=== PATIENT | female | born 1970 | race Caucasian/White ===

== ENCOUNTER 2020-01-25 08:08 | Day surgery (SDC) | payer BC ==
--- NOTE | 2020-01-24 07:09 | EKG ---
Test Date: 2020-01-22 Test Time: 11:55:43 Process Control Technician: PAULINA MEASUREMENT RESULTS: Intervals: Rate: 67 NE: 174 QRSD: 82 QT: 436 QTc: 460 [place]: P: 82 NE: 174 QRS: 88 T: 61 INTERPRETIVE STATEMENTS: Normal sinus rhythm Normal ECG No previous ECG available for comparison Electronically Signed On 01-24-20 07:04:20 CDT by Jama Murray
--- OUTSIDE RECORDS SUMMARY | 2020-01-25 08:10 | XMS REPORT | Continuity of Care Document ---
:1970 Author Organization [employer] Care Team Providers Name Role Phone [employer] Unavailable Un available Problems Problem Status Onset Classification Date Comments Sourc e Date Reported Malignant tumor Resolved 02/04/20 Problem 10/12/2018 MH of thyroid gland 17 Med ical (disorder) Group,Mis brian Neuro R10.2 - PELVIC Active 11/10/19 MH OP ID AND PERINEAL PAIN 17 [place] Menopausal Active 03/22/20 Problem 10/12/2018 Data MH syndrome 13 migrated Medical (disorder) from [facility] Group,Mis [facility]ric[facility] brian on 09/07/14. Neuro Malaise and Active 02/28/20 Problem 10/12/2018 Data MH fatigue (finding) 13 migrated Me dical from [facility] Group,Mis Centricity brian on 09/07/14. 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 Neuro Abdominal Active 08/16/19 Problem 10/12/2018 Data MH bloating 13 migrated Medical (finding) from [facility] Group,Mis Centricity brian on 09/07/14. Neuro Internal Active 08/12/19 Problem 10/12/2018 Data MH hemorrhoids 13 migrated Medical (disorder) from [facility] Group,Mis Centricity brian on 09/07/14. Neuro Melanosis coli Active 08/12/19 Problem 10/12/2018 Data MH (disorder) 13 migrated Medical from [facility] Group,Mis Centricity brian on 09/07/14. Neuro Allergic rhinitis Active 07/27/19 Problem 10/12/2018 Data M H (disorder) 13 migrated Medical from [facility] Group,Mis Centricity brian on 09/07/14. Neuro Constipation Active 07/25/19 Problem 10/12/2018 Data MH (disorder) 13 migrated Medical from [facility] Group,Mis Centricity brian on 09/07/14. Neuro History of polyp Active Problem 10/12/2018 MH of colon Medical (situation) Group,Mi s brian Neuro Hypothyroidism Active Problem 10/12/2018 Data (disorder) migrated Medical from Group,[facility] Toxic[facility] Cent[facility] brian on 09/07/14. Neuro Irritable colon Active Problem 10/12/2018 (disorder) Medical Group,Mis brian Neuro Medications Medication Details Route Status Patient Ordering Order Source Instructions Provider Date lubiprostone 8 microgram Active 0.008 MG Oral = 1 cap, PO, 017 Medic al Capsule BID, # 60 Group [Amitiza] tab, 11 Refill(s), Pharmacy: [facility]/pharmacy #[id number] omeprazole 20 20 mg = 1 Active MH mg oral delayed cap, PO, 017 Medical release capsule Daily, # 30 Grou p cap, 1 Refill(s), other Allergies, Adverse Reactions, Alerts Substance Category Reaction Severity Reaction Status Date Comments S ource type Reported aspirin<sup Assertion Drug Active Data Mischer >1</sup> allergy 2 migrated Neuro from [employer] on 08/08/14. Originally documented as [facility] ASPIRIN. hives Immunizations Immunization Date Given Site Status Last Comments Source Updated Hx influenza 03/07/2013 completed GE Result Med [facility]specifi [facility]sup[facility] Migrated from e r Neuro OBS ; Data migrated from [employer] on 05/13/2015. Results No Data Provided for This Section Pathology Reports No Data Provided for This Section Diagnostic Reports Report Value Date Source Pelvis w Transvag and STUDY: Pelvis w Transvag and Pelvis Dopple r US 11/11/2016 [facility] Pelvis Doppler US COMPARISON: None. HISTORY: R10.2 Pelvic and perineal pa in - R10.2 Pelvic and perineal pain. FINDINGS: Transvaginal and transabdomi nal ultrasound images of the pelvis were obtained. Uterus: Anteverted and gama ures 8 x 3 x 4 cm. No uterine fibroids are seen. 5 mm myometrial cyst is seen in the posterior uterine body. Endometrial cavity: Empty. Endometrial stripe: Measures 5.0 mm which is wit hin normal limits. Right adnexa: Ovary measures 1.6 x 1.4 x 2.0 cm. No cyst or mass. Normal vascularity is seen. Left adnexa: Ovary measures 1.5 x 1.4 x 1.5 cm. No cyst or mass. Normal vascularity is seen. Pelvic fluid: None. Cervix: Unremarkable. IMPRESSION: Unremarkable pelvic ultrasound. Consultation Notes No Data Provided for This Section Discharge Summaries No Data Provided for This Section History and Physicals No Data Provided for This Section Vital Signs Vital Sign Value Date Comments Source Height 154.94 cm 03/10/2017 Medical Gr[facility] p BMI Calculated 24.9 03/10/2017 Medical Gr oup Weight 59.773 03/10/2017 Medical Grou p Systolic (mm Hg) 131 03/10/2017 Medical Group Diastolic (mm Hg) 76 03/10/2017 Medical Group Encounters Location Location Encounter Encounter Reason Attending ADM NH Stat us Source Details Type Number For Provider Date Date Visit [facility] Outpt Diag [id number] Sasha 11/11 11/12 [facility] [place] [facility] [id number] [facility] 02/03 [facility] [place] Outpatient [id number] SCREENING 02/07 Acti ve [facility] [place] Outpatient [id number] K[facility] 03/10 [facility] Outpatient [id number] [place] 03/10 03/11 [facility] [place] /2016 Med ical ology Group [place] Outpatient [id number] KIRT 04/21 [facility] Ambulatory [id number] Kirt 04/21 04/21 Gastroenter Pre-Reg [place] /2017 [place] dical [facility]logy Group [facility] Phone [id number] 09/08 09/10 [facility] Neur o e [place] [facility] [id number] Hamid 10/10 Active [facility] [place] [facility] Ambulatory [id number] Hamid 10/10 10/10 [facility] Pre-Reg [facility] Neur o e [place] Procedures Procedure Code Date Perfomer Comments Source Colonoscopy [id number] 02/09/20 Medical 17 Group,Misch er Neuro Esophagogastroduodenoscopy [id number] 02/09/20 Medical 17 Group,[facility]isch er Neuro Thyroidectomy [id number] Medical Group,[facility] er Neuro TL - Tubal ligation [id number] [facility] dical Group,[facility] er Neuro Assessment and Plan No Data Provided for This Section Plan of Care No Data Provided for This Section Social History Social History Date Source Social History TypeResponse 03/10/2017 [facility] Substance Abuse Use: None. Alcohol Current Smoking Status Current every day smoker; Exposure to To bacco Smoke None; Cigarette Smoking Last 365 Days Yes; Reg Smoking Cessation Counseling Yes entered on: 03/10/17 Social History TypeResponse 03/10/2017 [facility] Substance Abuse Use: None. Alcohol Current Smoking Status Current every day smoker; Exposure to To bacco Smoke None; Cigarette Smoking Last 365 Days Yes; Reg Smoking Cessation Counseling Yes entered on: 03/10/17 No data available for this 11/12/2016 [facility] section Family History No Data Provided for This Section Advance Directives No Data Provided for This Section Functional Status No Data Provided for This Section
--- OUTSIDE RECORDS SUMMARY | 2020-01-25 08:10 | XMS REPORT | Clinical Summary ---
:1970 Author Organization [facility] Address [address] [place] [address] Care Team Providers Name Role Phone Jeanne Wendy Primary Care Provider Allergies Active Allergy Reactions Severity Noted Date Comments Aspirin Medications Not on file Active Problems Not on file Social History Tobacco Use Types Packs/Day Years Used Date Never Assessed Sex Assigned at Date Recorded Not on file Last Filed Vital Signs Not on file Plan of Treatment Not on file Results Not on fileafter 01/24/2019 Insurance Payer Benefit Plan / Subscriber ID Effective Dates Phone Addre ss Type Group BLUE BCBS PPO POS [id number] 2018-Presen [phone] [id number] PPO CROSS/BLUE EPO CHOICE t 2 [facility] [id number]
--- OUTSIDE RECORDS SUMMARY | 2020-01-25 08:10 | XMS REPORT | Clinical Summary ---
:1970 Author Organization [facility] Address [address] [place] [address] Care Team Providers Name Role Phone Wendy Angel MD Primary Care Provider Allergies No Known Active Allergies Medications Medication Sig Dispensed Refills Start Date End Date Status levothyroxine Take 112 mcg by 0 Active (SYNTHROID, LEVOXYL) mouth daily. 112 mcg tablet raloxifene (EVISTA) 60 Take 60 mg by 0 Active mg tablet mouth daily. diazePAM (VALIUM) 5 MG Take 5 mg by 0 Active tablet mouth every 6 (six) hours as needed for anxiety. lubiprostone (AMITIZA) Take 8 mcg by 0 Active 8 MCG capsule mouth 2 (two) times a day with meals. zolpidem (AMBIEN) 10 mg Take 10 mg by 0 Active tablet mouth nightly as needed for sleep. Active Problems Not on file Surgical History Surgery Date Site/Laterality Comments THYROIDECTOMY Medical History Medical History Date Comments Hypothyroid Cancer (HCC) Social History Tobacco Use Types Packs/Day Years Used Date Heavy Tobacco Smoker Smokeless Tobacco: Never Used Alcohol Use Drinks/Week oz/Week Comments Yes sometimes Sex Assigned at Date Recorded Not on file Last Filed Vital Signs Not on file Plan of Treatment Health Maintenance Due Date Last Done Comments CERVICAL CANCER SCREENING 1989 BREAST CANCER SCREENING 2018 COLONOSCOPY SCREENING 2018 SHINGLES VACCINES (#1) 2018 INFLUENZA VACCINE 11/10/2019 Results Not on fileafter 01/24/[address] ([place]) [place] [address] Advance Directives For more information, please contact: [phone] Type Date Recorded Patient County Nurse Explanati on Advance Directives, Living Will 08/31/2018 11:18 PM and Medical Power of Community Educator
--- OUTSIDE RECORDS SUMMARY | 2020-01-25 08:11 | XMS REPORT | Continuity of Care Document ---
:1970 Author Organization [facility] t Address [address] [place] [address] Care Team Providers Name Role Phone Wendy Amezquita Primary Care Physician Mary Corrales Attending Clinician WENDY AMEZQUITA Attending Clinician Unavailable MARSHA Attending Clinician Unavailable Wendy Barajas Attending Clinician Beverly Moralez Attending Clinician WENDY AMEZQUITA Admitting Clinician Unavailable Problems Condition Condition Condition Status Onset Resolution Last Treating Co mments Source Name Details Category Date Date Treatment Clinician Date R10.2 - Diagnosis Active 2016-11-11 Me moria PELVIC AND 11-09 16:07:00 l PERINEAL R10.2 - 00:01: Samia nn PAIN PELVIC AND 00 PERINEAL PAIN Active 11/09/2016 [facility]ID [place] Tick bite Tick Bite Problem Active [facility] 10-27 da 00:00: Medical 00 Group Menopausal Problem Active 2012-042018-10-12 M emoria syndrome 2-12 21:18:32 l (disorder) 00:00: Monty prakash Menopausal 00 syndrome (disorder) Active 03/22/2013 Problem 10/12/2018 [facility] migrated from [facility] on 09/07/14. [facility] [place] Malaise Problem Active 2012-042018-10-12 Lester barbara and 04-29 21:18:32 l fatigue Malaise 00:00: Monty n (finding) and 00 fatigue (finding) Active 02/27/2013 Problem 10/12/2018 Data migrated from [employer] on 09/07/14. [facility] her Neuro Non-thromb Problem Active 2012-042018-10-12 M emoria ocytopenic 04-29 21:18:32 l purpura 00:00: Tevin (disorder) Non-thromb 00 ocytopenic purpura (disorder) Active 02/27/2013 Problem 10/12/2018 Data migrated from [employer] on 09/07/14. [facility] her Neuro Internal Problem Active 2018-10-12 Mem oria hemorrhoid 08-11 21:18:32 l s Internal 00:00: Monty n (disorder) hemorrhoid 00 s (disorder) Active 08/11/2012 Problem 10/12/2018 Data migrated from [employer] on 09/07/14. [facility] her Neuro Melanosis Problem Active 2018-10-12 Me moria coli 08-11 21:18:32 l (disorder) 00:00: Monty n Melanosis 00 coli (disorder) Active 08/11/2012 Problem 10/12/2018 Data migrated from [employer] on 09/07/14. [facility] her Neuro Constipati Problem Active 2018-10-12 M emoria on 07-24 21:18:32 l (disorder) 00:00: Monty n Constipati 00 on (disorder) Active 07/24/2012 Problem 10/12/2018 Data migrated from [employer] on 09/07/14. [facility] her Neuro Hypothyroi Hypothyroi Problem Active [facility] dism dism [facility] Hyperparat Hyperparat Problem Active [facility] hyroidism hyroidism [facility] Hyperlipid Hyperlipid Problem Active M [facility] emia emia [facility] Anxiety Anxiety Problem Active [facility] Insomnia Insomnia Problem Active [facility] Infection Infection Problem Active [facility] of ear of Ear [facility] Upper Upper Problem Active [facility] respirator Respirator da y y Medical infection Infection Grou p Acute Acute Problem Active [facility] bronchitis Bronchitis [facility] Allergic Allergic Problem Active [facility] rhinitis Rhinitis [facility] Influenza Influenza Problem Active [facility] Gastroesop Gastroesop Problem Active M [facility] hageal hageal da reflux Reflux Medical disease Disease Group Acute Acute Problem Active [facility] gastritis Gastritis [facility] Gastritis Gastritis Problem Active [facility] Atrophic Atrophic Problem Active [facility] vaginitis Vaginitis [facility] Eczema Eczema Problem Active [facility] Cramp in Cramp in Problem Active [facility] lower limb Lower Limb [facility] Osteoporos Osteoporos Problem Active [facility] is is [facility] Bone pain Bone Pain Problem Active [facility] Numbness Numbness Problem Active [facility] Abdominal Abdominal Problem Active [facility] bloating Bloating [facility] Flank pain Flank Pain Problem Active [facility] Upper Upper Problem Active [facility] abdominal Abdominal da pain [facility] Lower Lower Problem Active [facility] abdominal Abdominal da pain [facility] History of Problem Active 2018-10-12 M emoria polyp of 21:18:32 l colon History [place] (situation of polyp ) of colon (situation ) Active Problem 10/12/2018 [facility] [place] [place] Irritable Problem Active 2018-10-12 Me moria colon 21:18:32 l (disorder) Monty n Irritable colon (disorder) Active Problem 10/12/2018 Medical [facility] [place] History of Past Illness Condition Condition Condition Status Onset Resolution Last Treating Co mments Source Name Details Category Date Date Treatment Clinician Date Malignant Problem Resolve 2016-042018-10-12 2018-10-12 Memoria tumor of d 0-26 21:18:32 21:18:32 l thyroid 00:00: Tevin gland Malignant 00 (disorder) tumor of thyroid gland (disorder) Resolved 02/03/2017 Problem 10/12/2018 Medical [place] [place] Allergies, Adverse Reactions, Alerts Allergy Allergy Status Severity Reaction(s) Onset Inactive Treating Comm ents Source Name Type Date Date Clinician aspirin< aspirin< Active 2011-04 Memori a sup>1</s sup>1</s 0-03 l up> up> 05:00: Tevin 00 Aspirin Propensi Active [facility] - adverse Medical reaction Center s Social History Social Habit Start Date Stop Date Quantity Comments Source Sex Assigned At [facility] ethodist Tobacco use and 2018-09-01 2018-09-01 Never used [facility] ethodist exposure 00:00:00 00:00:00 Alcohol intake 2018-09-01 2018-09-01 Current drinker [place] [facility] 00:00:00 00:00:00 of alcohol (finding) Alcohol Comment 2018-08-31 2018-08-31 sometimes Cesar blevinsodist 00:00:00 00:00:00 Social History 2016-11-12 2016-11-12 Pardeep pierce 04:59:00 04:59:00 Smoking Status Start Date Stop Date Source Heavy tobacco smoker 2018-09-01 00:00:00 Cesar Boles Medications Ordered Filled Start Stop Current Ordering Indication Dosage Frequency Signature Comments Components Source Medication Medication Date Date Medication? Clinician (SIG) Name Name odilia azithromyci 2019-04 No azitharielle [place] n 250 mg n 250 mg 0-07 in 250 mg da tablet tablet 00:00: tablet Medical 00 Group levothyroxi Yes 112ug QD Take 112 [place] ne 5-23 mcg by Methodi (SYNTHROID, 23:46: mouth st LEVOXYL) 25 daily. 112 mcg tablet raloxifene Yes 60mg QD Take 60 mg [place] (EVISTA) 60 5-23 by mouth Meth sachin mg tablet 23:46: daily. st 25 diazePAM Yes 5mg Q6H Take 5 mg [place] (VALIUM) 5 5-23 by mouth Metho di MG tablet 23:46: every 6 st 25 (six) hours as needed for anxiety. lubiproston Yes 8ug Q.5D Take 8 mcg [place] e (AMITIZA) 5-23 by mouth 2 Me thodi 8 MCG 23:46: (two) st capsule 25 times a day with meals. zolpidem Yes 10mg QD Take 10 mg Caryl ston (AMBIEN) 10 5-23 by mouth Meth sachin mg tablet 23:46: nightly as st 25 needed for sleep. lubiproston 2016-04 Yes 8 Memori a e 0.008 MG 1-30 microgram l Oral 22:11: = 1 cap, [place]evin Capsule 00 PO, BID, # [Amitiza] 60 tab, 11 Refill(s), Pharmacy: Where Was it Filmed/[facility] #[id number] omeprazole 2016-04 Yes 20 mg = 1 Me moria 20 mg oral 1-30 cap, PO, l delayed 22:11: Daily, # Monty n release 00 30 cap, 1 capsule Refill(s), other atorvastati atorvastati No atorvastat [place] n 10 mg n 10 mg in 10 mg da tablet tablet tablet Medical Group azelastine- azelastine- No 1spray( BID azelastine [place] fluticasone fluticasone s) -fluticaso da 137 mcg-50 137 mcg-50 ne 137 M edical mcg/spray mcg/spray mcg-50 Luis up nasal spray nasal spray mcg/spray [place] 1 [place] 1 nasal spray twice spray twice spray a day by a day by [place] 1 intranasal intranasal spray route for route for twice a 30 days. 30 days. day by intranasal route for 30 days. fluticasone fluticasone No fluticason [place] propionate propionate e da 50 50 propionate Medical mcg/actuati mcg/actuati 50 G roup on nasal on nasal mcg/actuat spray,suspe spray,suspe ion nasal nsion nsion spray,susp ension gabapentin gabapentin No gabapentin [place] 300 mg 300 mg 300 mg da capsule capsule capsule Medica l Group levothyroxi levothyroxi No levothyrox [place] ne 100 mcg ne 100 mcg ine 100 da tablet tablet mcg tablet Medic al Group omeprazole omeprazole No omeprazole [place] 40 mg 40 mg 40 mg da capsule,del capsule,del capsule,de Medical ayed ayed layed Group release release release Phospha 250 Phospha 250 No Phospha [place] Neutral 250 Neutral 250 250 d a mg tablet mg tablet Neutral Me dical 250 mg Group tablet zolpidem 10 zolpidem 10 No zolpidem [place] mg tablet mg tablet 10 mg da TAKE 1 AND TAKE 1 AND tablet M edical 1/2 TABLETS 1/2 TABLETS TAKE 1 AND Group BY MOUTH BY MOUTH 1/2 EVERY NIGHT EVERY NIGHT TABLETS BY AT BEDTIME AT BEDTIME MOUTH EVERY NIGHT AT BEDTIME Vital Signs Vital Name Observation Time Observation Value Comments Source BP Diastolic 2020-01-16 00:00:00 75 mm[Hg] [facility] Height 2020-01-16 00:00:00 61 [in_i] [facility] BMI (Body Mass 2020-01-16 00:00:00 26.3 kg/m2 [facility] medical transcription Medical Index) Group BP Systolic 2020-01-16 00:00:00 107 mm[Hg] [facility] Body Weight 2020-01-16 00:00:00 139.2 [lb_av] [facility] Height 2017-03-10 21:31:00 [facility] Calculated 2017-03-10 21:31:00 Memlesly al [place] Weight 2017-03-10 21:31:00 [facility] [place] Systolic (mm Hg) 2017-03-10 21:31:00 Lester rial [place] Diastolic (mm Hg) 2017-03-10 21:31:00 Mem orial [place] Procedures Procedure Date / Time Performing Clinician Source Performed Colonoscopy 2017-02-08 05:00:00 [facility] Esophagogastroduodenoscopy 2017-02-08 05:00:00 [facility] [place] Tubal Ligation 1990-04-11 00:00:00 [facility] Thyroidectomy [facility] TL - Tubal ligation [facility] Plan of Care Planned Activity Planned Date Details Comments Source Future Scheduled 2019-11-10 INFLUENZA VACCINE [place] [facility] 00:00:00 [code = INFLUENZA VACCINE] Future Scheduled 2018 BREAST CANCER [place] [facility] Test 00:00:00 SCREENING [code = BREAST CANCER SCREENING] Future Scheduled 2018 COLONOSCOPY SCREENING [facility] Test 00:00:00 [code = COLONOSCOPY SCREENING] Future Scheduled 2018 SHINGLES VACCINES [place] [facility] Test 00:00:00 (#1) [code = SHINGLES VACCINES (#1)] Future Scheduled 1989 Screening for [facility] thodist Test 00:00:00 malignant neoplasm of cervix (procedure) [code = 515372723] Encounters Start End Encounter Admission Attending Care Care Encounter Source Date/Time Date/Time Type Type Clinicians Facility Department ID 2020-01-16 2020-01-16 [place]OLO [place] - [id number] [facility] 00:00:00 00:00:00 : Kassie [facility]ly [facility] [place] [address], [facility], Otolaryngol [facility] [address] , Ph. 2018-10-10 2018-10-10 Outpatient Hamdi, MHMISCHER MHMISCHER [id number] 09:30:00 09:30:00 Hamcarlie S 04 2018-09-08 2018-09-09 Outpatient MHMISCHER MHMISCHER [id number] 15:05:20 23:59:59 00 2018-09-05 2018-09-05 Outpatient GEETA MILLARD [facility] [id number] [place] 08:27:00 23:59:00 [facility] 2017-04-21 2017-04-21 Outpatient Jenn [facility] [id number] 14:00:00 14:00:00 Kirt Nguyen 2017-03-10 2017-03-10 Outpatient Jenn [facility] [id number] 15:30:00 23:59:59 Kirt Nguyen 2016-11-11 2016-11-11 Outpatient Kirt, [id number] 15:55:00 23:59:00 Sasha [id number] [place] [id number] Results Test Description Test Time Test Comments Results Result [facility] e Comments MRI BRAIN W/O 2018-09-05 MRI brain without CONTRAST 10:52:13 contrastLocation code: [id number] history: HeadacheComparison: NoneTechnique: Multiplanar multisequence MR imaging of the brain was performedwithout contrast. Findings: There is no area of restricted diffusion to suggest acute or recentinfarct. There is no acute intracranial hemorrhage or extra-axial collection. There is mild generalized volume loss. Mild increased T2/FLAIR signal withinthe periventricular white matter is noted compatible with chronic small vesseldisease. There is no space-occupying mass, or lesion. There is nohydrocephalus, intracranial edema, or midline shift. The posterior fossa and internal auditory canals are unremarkable. The orbits,globes, sinuses, and skull base are unremarkable.Impression : Mild deep white matter chronic small vessel disease with otherwise no acuteintracranial abnormality CT, SOFT TISSUE 2018-05-30 FINAL REPORT PATIENT NECK, WITHOUT / 15:16:00 ID: [id number] WITH IV CONTRAST Examination:CT, SOFT TISSUE NECK, WITHOUT / WITH IV CONTRAST History: 48-year-old female presents with evaluation for primary hyperparathyroidism; history of multiple kidney stones, abnormal calcium and parathyroid levels; history of osteoporosis. History of thyroidectomy in 2005.Comparison studies: None Technique: Axial images from the skull base to the thoracic inletCoronal and sagittal reformatted images.Dose modulation, iterative reconstruction, and/or weight based adjustment of the mA/kV was utilized to reduce the radiation dose to as low as reasonably achievable. Intravenous contrast: 100mL of Isovue-300. Findings: Soft tissues:No abnormalities, specifically, no parathyroid adenoma. Aerodigestive tract: No abnormality. Lymph nodes:No radiographically significant adenopathy. Vessels: Arteries and veins are patent. Thyroid gland: Evidence of prior thyroidectomy. Submandibular glands:Normal in size and homogeneous. Parotid glands:Normal in size and homogeneous. Paranasal sinuses: Moderate inflammatory mucosal thickening of the partially visualized bilateral ethmoid air cells.Temporal bones: No abnormalities.Skull base and facial bones: Intact. Cervical spine: No disc bulge or herniation or foraminal or canal stenosis. Visualized lung apices:Biapical pleural thickening. IMPRESSION: 1.No evidence for parathyroid adenoma. 2.Prior thyroidectomy Signed: Aida Mott MDReport Verified Date/Time: 05/30/2018 15:16:22 Reading Location: [facility] Reading Room [address] [place] [address] -CREATININE 2018-05-30 12:49:00 Test Item Value Reference Range Interpretation Comme [facility] POC-CREATININE (YOANDY) (test 0.4 mg/dL 0.6-1.3 L TESTED AT [facility] 7200 code = 1859) [facility] [address] POC-EGFR (YOANDY) (test code = 169 mL/min/1.73M2 1860)
--- OUTSIDE RECORDS SUMMARY | 2020-01-25 08:11 | XMS REPORT | Encounter Summary ---
:1970 Author Care Team Providers Name Role Phone Bronwyn Angel MD Primary Care Provider [phone] Lupillo Benavidez MD Assistant To The Director [phone] Reason for Visit New pt Instructions 1. Deviated nasal septum 2. Hypertrophy of nasal turbinat es 3. Dysfunction of eustachian tub e 4. Chronic sinusitis 5. Vasomotor rhinitis azelastine-fluticasone 137 mcg-50 mcg/spray nasal spray 6. Dysphonia Discussion Note: None recorded.Patient educational handouts: No information available. Plan of Care Reminders Provider Appointments None recorded. Lab None recorded. Referral None recorded. Procedures None recorded. Surgeries None recorded. Imaging None recorded. Medications Name Start Date atorvastatin 10 mg tablet azelastine-fluticasone 137 mcg-50 mcg/spray nasal spra y [place] 1 spray twice a day by intranasal route for 30 days. azithromycin 250 mg tablet 01/16/2020 fluticasone propionate 50 mcg/actuation nasal spray,suspension gabapentin 300 mg capsule levothyroxine 100 mcg tablet omeprazole 40 mg capsule,delayed release Phospha 250 Neutral 250 mg tablet zolpidem 10 mg tablet TAKE 1 AND 1/2 TABLETS BY MOUTH EVERY NIGHT AT BEDTIM E Medications Administered None recorded. Vitals Height Weight BMI Blood Pressure 5 ft 1 in 139.2 lbs 26.3 kg/m2 107/75 mm[Hg] Results Lab Results None recorded. Allergies Code Code System Name Reaction Severity Status Onset NKDA Problems Name Status Onset Date Source Tick Bite Active 10/27/2016 Hypothyroidism Active Hyperparathyroidism Active Hyperlipidemia Active Anxiety Active Encounter Insomnia Active Infection of Ear Active Upper Respiratory Infection Active Acute Bronchitis Active Allergic Rhinitis Active Influenza Active Gastroesophageal Reflux Disease Active Acute Gastritis Active Gastritis Active External Atrophic Vaginitis Active Eczema Active Cramp in Lower Limb Active Osteoporosis Active Bone Pain Active Numbness Active Abdominal Bloating Active Flank Pain Active Upper Abdominal Pain Active Lower Abdominal Pain Active Procedures Date Name Performed by 04/11/1990 Tubal Ligation Information not avai lable Thyroid Surgery Information not avai lable Vaccine List None recorded. Social History Tobacco Smoking Status Heavy Tobacco Smoker (1 PPD) Past Encounters 01/16/2020 Deviated Nasal Septum; Hypertrophy of Na sylvie Turbinates; Dysfunction of Eustachian Tube; Chronic Sinusitis; Vasomotor Rhinitis; Dysphonia Lupillo Benavidez MD: [address] [place] [address], [facility] [place] [address], [place] [address], Ph. History of Present Illness Note: <div>This is a 49 yo female c/o 1 year hx of sinus issue. Her symptoms started 1 year ago with pain around the forehead area which she thought it was sinus in origin. She also has intermittent clear nasal drainage with decreased smell sensation. Other symptoms also including bilateral ear pre ssure/pain and eye pain as well. She was seen by ENT last year and was treated with oral antibioticswith out signficant improvement. A CT scan done few month ago showed deviated septum to the left with possible sinus involvement. The patient was supposed to have nasal/sinus surgery earlier this year,but had to be cancelled due to covid and other personal reasons. </div><div>
</div><div>Pt has long hx of hoarseness, started with hx of thyroidectomy in 2005, and vocal cord surgery in 2006( for polyp/granuloma ) which improved her vocal quality at that time. However she did c/o worsening of her voice in the past few years. </div> Review of Systems: ROS as noted in the HPI Review of Systems None recorded. Physical Exam Notes: right eac clear, tm intact a nd not mobile, there is mild retraction of the TM, but no obvious effusion<div> left eac clear, tm intact, not mobile, but no retraction appreciated </div ><div>rinne positive bilaterally</div><div>magdaleno to the left </div><div>nose: clear on anterior exam, but the septum is jacoby rely deviated to the left with 90% obstruction.</div><div>th e nasal bone is deviated to the right. </div><div>oc: clear, tongue midline, no mass lesion, OP is clear</div><div>necks, soft, no mass lesion or LAD, previous thyroid scar is seen. </div>
[2020-01-25] MEDS ORDERED: Ringers Lactate 1,000 ML IV ONE ×2 (09:36→14:35)
[2020-01-25] MEDS ORDERED: OXYMETAZOLINE HCL 0.05% 15ML NAS ONE ×4 (09:36→12:16)
[2020-01-25] MEDS ORDERED: propofoL 200 MG/20 ML VIAL IV ONE (11:54)
[2020-01-25] MEDS ORDERED: MIDAZOLAM HCL 2 MG/2 ML INJ ONE (11:55)
[2020-01-25] MEDS ORDERED: ONDANSETRON 4 MG/2 ML VIAL ONE (11:55)
[2020-01-25] MEDS ORDERED: LIDOCAINE 2% MPF 5 ML VIAL ONE (11:55)
[2020-01-25] MEDS ORDERED: dexAMETHasone 4 MG/ML VIAL ONE ×2 (11:55→13:44)
[2020-01-25] MEDS ORDERED: FENTANYL CITR 250 MCG/5 ML ONE (11:55)
[2020-01-25] MEDS ORDERED: ROCURONIUM 50 MG/5 ML VIAL IV ONE (11:55)
[2020-01-25] MEDS ORDERED: NA CHLORIDE 0.9% 500 ML ONE (12:16)
[2020-01-25] MEDS ORDERED: LIDOCAINE 1% W/EPI 1:100,000 MDV 20 ML VIAL ONE (12:16)
[2020-01-25] MEDS: HYDROMORPHONE HCL 1 MG/ML INJ ONE ×4 (15:17→15:32)
[2020-01-25] MEDS ORDERED: LABETALOL 20 MG/4ML SYRINGE IV ONE (15:28)
[2020-01-25 16:01] VITALS: TEMP 97.2; O2SAT 96
[2020-01-25] MEDS ORDERED: TRAMADOL HCL 50 MG TAB ONE (16:49)
[2020-01-25 16:53] VITALS: BP 127/64
--- NOTE | 2020-01-27 14:05 | OP ---
Date of Procedure: 01/25/2020 Surgeon: Michaelle Navarrete MD Preoperative Diagnoses: Recurrent sinusitis, nasal obstruction, bilateral fortino bullosa, inferior turbinates hypertrophy, severe left septal deviation, right chronic sphenoid sinusitis. Postoperative Diagnoses: Recurrent sinusitis, nasal obstruction, bilateral fortino bullosa, inferior turbinates hypertrophy, severe left septal deviation, right chronic sphenoid sinusitis with right chronic ethmoid sinusitis. Procedure: Septoplasty, bilateral fortino bullosa resection, right ethmoidectomy, right sphenoid balloon sinuplasty, bilateral inferior turbinate duct fracture. Indication For Procedure: Liberty Max presented to the clinic with complaints of chronic and recurrent sinusitis symptoms. She was noted to have a severe left septal deviation and fortino bullosa on the right side. She was treated with maximal medical therapy and underwent post treatment CT demonstrating partial opacification of the right sphenoid. Surgical plan was delayed due to the COVID crisis. The patient experienced mulitple sinus infections while awaiting surgery, which were treated by her primary care doctor. She had additional infection about 1 month prior to her surgery, which was treated with azithromycin with partial improvement in her symptoms. She was finally able to undergo surgery in January. Description Of Procedure: The patient was brought to the operating room. She was placed under general anesthesia via oral endotracheal tube. The head of bed was turned to 90 degrees. The nasal hairs are trimmed and the right nasal cavity was packed with Afrin-soaked pledgets. The left septum is injected with 1% lidocaine with epinephrine. The patient is prepped and draped in the standard fashion for sinus surgery. The 0-degree endoscope was used to perform a nasal endoscopy and photo documentation is collected. The right fortino bullosa is noted to be very large and obstructs the left septum severely deviated, obscuring view of the inferior and middle turbinates. A sickle knife is used to incise the anterior aspect of the right fortino and endoscopic scissors and 45-degree thru-cut are to further dissect and release the lateral- most portion of the fortino. After removal of the mucosa of the ethmoid bulla, has noted to be inflamed and moderate amounts of mucus are noted. Decision was made intraoperatively to perform the ethmoidectomy. Based on these clinical findings, a curette was used to dissect the ethmoid and anterior and posterior ethmoid cells with removal of these bony partitions and areas of inflamed mucosa. The decision was made to perform a trans ethmoid sphenoid dilation based on the findings and desire to avoid further destabilization of the middle turbinate. The entellus balloon device was used to gently probe along the posterior surface of the ethmoid until the sphenoid was cannulated and dilated. The entellus device was used to irrigate with significant pressure noted during attempted irrigating. The area was carefully suctioned and rehydration is performed with the pressure in the balloon held for approximately 2 minutes in order to provide compression of the inflamed mucosa. The sphenoid sinus was then forcefully irrigated through the entellus device with extrusion of thick yellow mucoid material. The 7-Pashto Buck device was then able to pass through the sigmoid opening and additional aliquots of irrigation are used to ensure removal of all purulent device from the sinus. The ethmoid cavity is then packed with Afrin-soaked pledgets and attention is turned to the septoplasty using a headlight and standard open approach. A hemitransfixion incision is made. The right and left mucosa are elevated using a large septal spur and deviated portions of the cartilage and bone are carefully dissected and removed using Joel straight thru-cut Blakesley and Colbert elevator and suction. After removal of these deviated portions, the left septal deviation is much improved, allowing visualization of the inferior and middle turbinate. The middle turbinate is noted to be very floppy with somewhat polypoid tissue along its frontmost portion and along the inferior aspect with some polypoid mucosa along its posterior attachment. This polypoid material is removed using the debrider, allowing better medialization of the middle turbinate with a [place]. The fortino portion is then incised and removed using a sickle knife as well as endoscopic scissors. A 45-degree thru-cut Blakes[place] and the microdebrider. These areas were likewise packed with Afrin-soaked pledgets and the inferior turbinates are inspected with adequate decongestion. The turbinates are noted to be prominent anteriorly and posteriorly and decision is made for downfracture of these rather than mucosal resection in order to reduce the risk of mucosal adhesions during surgery to reduce the need for silastic splinting device. After down fracture of the bilateral inferior turbinates, the nasal airway appeared significantly improved. The nasal pledgets are removed and the count is confirmed as correct. A Propel device is placed within the right ethmoid cavity extending back toward the sphenoid os in order to provide local drug delivery and reduce inflammation of these mucosal tissues. Additional Propel devices deployed on the right side in order to act as a spacer between the middle turbinate and the lateral nasal wall as well as provide local steroid drug delivery along the middle turbinate where some polypoid mucosa was noted. The hemitransfixion incision was closed in a running fashion using plain gut sutures. After closure, there is mild persistent septal deviation due to the natural curvature of the cartilage. Additional resection of the cartilage was not performed in order to preserve structural integrity and support of nasal dorsum and nasal tip. It was felt that the overall degree of improvement due to the resection of the bony spur and improvement in the curvature would result in adequate nasal airway for the patient, particularly in combination with the other procedure performed. A small portion of Xerogel nasal packing was placed within the right ethmoid cavity in order to provide additional hemostasis to oozing from the inflamed mucosa. The nasopharynx was thoroughly suctioned and the patient was returned to care of anesthesia for awakening and extubation in the operating room, which proceeded without difficulty. Complications: None. Disposition: The patient will be discharged to home in the care of her family later today. She is given written instructions regarding post sinus surgery care including use of saline irrigations. She is strongly admonished to avoid smoking, particularly during the healing for her sinus surgery. She will follow up with Dr. Navarrete in 10-14 days for evaluation of healing. JUAN FRANCISCO/MARY Voice ID: [id number] Report ID: [id number]
== END 2020-01-25 17:30 | disposition home or self-care (01) ==
LOC: OR 08:08
PROVIDERS: ATTEND Otolaryngology
PROC: 09TU8ZZ Resection of Right Ethmoid Sinus, Via Natural or Artificial Opening Endoscopic (ICD-10-PCS; 2020-01-25)
PROC: 09TL8ZZ Resection of Nasal Turbinate, Via Natural or Artificial Opening Endoscopic (ICD-10-PCS; 2020-01-25)
PROC: 09SM0ZZ Reposition Nasal Septum, Open Approach (ICD-10-PCS; principal; 2020-01-25 11:30)
DX: J34.89 Other specified disorders of nose and nasal sinuses (principal); J34.2 Deviated nasal septum; J32.3 Chronic sphenoidal sinusitis; J34.3 Hypertrophy of nasal turbinates; R03.0 Elevated blood-pressure reading, without diagnosis of hypertension; Z72.0 Tobacco use; Z20.828 Contact with and (suspected) exposure to other viral communicable diseases
CPT/HCPCS: 30520; 31255; 31297; 31240; 93005; 88304; 88311; 31254; 31299; U0002; J2704; J1100 ×2; J2250; J3010; J1170 ×2; J7120 ×2; J7040; J2405